=== PATIENT | male | born 1940 | race Caucasian/White ===

== ENCOUNTER → 2018-08-23 | Outpatient (CLI) | payer OTHER ==
[~2018-08-23] MED LIST: ADULT LOW DOSE81 MG PO; ALLOPURINOL 30300 M1 PO; ALTACE 1.25 M1.25 M1 PO; ALTACE5 MG PO; ASPIRIN325 PO; COLACE100 MG PO; FISH OIL 1,0001 EAC5 PO; LIPITOR 20 MG T20 M1 PO; LIPITOR40 MG PO; MINOCYCLINE HC100 M2 PO; MOBIC15 MG PO; NORCO 5-325 TA1 EACH PO; NORVASC 5 MG TAB5 MG PO; NORVASC5 MG PO; PLAVIX 75 MG TA75 M1 PO; PLAVIX 75 MG TA75 MG PO; RAMIPRIL PO; ROBAXIN 750 MG750 M1 PO; TUMS PO; TYLENOL325 MG PO; WELCHOL 625 MG625 MG PO
== END ==
LOC: M.MRI 08:06
DX: M51.37 Other intervertebral disc degeneration, lumbosacral region (principal); M51.27 Other intervertebral disc displacement, lumbosacral region; M48.062 Spinal stenosis, lumbar region with neurogenic claudication; M51.35 Other intervertebral disc degeneration, thoracolumbar region; M41.86 Other forms of scoliosis, lumbar region

== ENCOUNTER → 2018-09-10 | Outpatient (CLI) | payer OTHER ==
--- NOTE | 2018-09-10 11:07 | 2DMMODE ---
[place] [address] 2 D/M-MODE ECHOCARDIOGRAM Name: ANSHU LIGHTIFFORD SOL Room: [facility]#: [id number] Admission: 09/10/18 Attend Phys: Tye Phan Discharge: Date of : 36 Date of Service: 09/10/18 1107 Report #: [id number] THIS REPORT FOR: //name// APPROVED REPORT Study performed: 09/10/2018 09:13:08 EXAM: Comprehensive 2D, Doppler, and color-flow Echocardiogram Patient Location: Out-Patient BSA: 2.11 HR: 50 bpm BP: 137/78 mmHg Other Information Study Quality: Good Indications Atrial Fibrillation Hypertension/HDD 2D Dimensions IVSd: 13.75 (7-11mm) LVOT Diam: 20.03 (18-24mm) LVDd: 52.36 mm PWd: 11.20 (7-11mm) Ascending Ao: 34.00 (22-36mm) LVDs: 33.37 (25-40mm) Aortic Root: 27.35 mm Volumes Left Atrial Volume (Systole) LA ESV Index: 26.40 mL/m2 Aortic Valve AoV Peak Joshua.: 1.62 m/s AO Peak Gr.: 10.49 mmHg LVOT Max P.85 mmHg AO Mean Gr.: 6.13 mmHg LVOT Mean P.82 mmHg LVOT Max V: 0.68 m/s AO V2 VTI: 40.07 cm LVOT Mean V: 0.41 m/s SANDRA (VTI): 1.39 cm2 LVOT V1 VTI: 17.73 cm Mitral Valve E/A Ratio: 0.63 MV Decel. Time: 294.22 ms MV E Max Joshua.: 0.42 m/s MV PHT: 85.32 [place] [address] 2 D/M-MODE ECHOCARDIOGRAM Name: SUHAS LIGHT [id number] Admission: 09/10/18 Attend Phys: Tye Phan Discharge: Date of : 36 Date of Service: 09/10/18 1107 Report #: [id number] MVA (PHT): 2.58 cm2 TDI E/Lateral E': 7.00 E/Medial E': 5.25 Medial E' Joshua.: 0.08 m/s Lateral E' Joshua.: 0.06 m/s Pulmonary Valve PV Peak Joshua.: 0.75 m/s PV Peak Gr.: 2.27 mmHg Tricuspid Valve RAP Estimate: 5.00 mmHg TR Peak Gr.: 17.47 mmHg RVSP: 22.47 mmHg PA Pressure: 22.47 mmHg Left Ventricle The left ventricle is normal size. There is normal LV segmental wall motion. There is normal left ventricular wall thickness. Left ventricular systolic function is normal. The left ventricular ejection fraction is within the normal range. LVEF is 55-60%. Grade I - abnormal relaxation pattern. Right Ventricle The right ventricle is normal size. The right ventricular systolic function is normal. Atria Left atrium is mildly dilated. The right atrium size is normal. Aortic Valve Mild aortic valve sclerosis. No aortic regurgitation is present. There is no aortic valvular stenosis. Mitral Valve The mitral valve is normal in structure. Mild mitral regurgitation. No evidence of mitral valve stenosis. Tricuspid Valve The tricuspid valve is normal in structure. Mild tricuspid regurgitation. Pulmonic Valve The pulmonary valve is normal in structure. Mild [place] [address] 2 D/M-MODE ECHOCARDIOGRAM Name: SUHAS LIGHT Room: [facility]#: [id number] Admission: 09/10/18 Attend Phys: Tye Phan Discharge: Date of : 36 Date of Service: 09/10/18 1107 Report #: [id number] Great Vessels The aortic root is normal in size. IVC is normal in size and collapses >50% with inspiration. Pericardium There is no pericardial effusion. <Conclusion> The left ventricle is normal size. There is normal left ventricular wall thickness. Left ventricular systolic function is normal. The left ventricular ejection fraction is within the normal range. LVEF is 55-60%. Grade I - abnormal relaxation pattern. The right ventricle is normal size. Left atrium is mildly dilated. Mild aortic valve sclerosis. No aortic regurgitation is present. There is no aortic valvular stenosis. The mitral valve is normal in structure. Mild mitral regurgitation. The tricuspid valve is normal in structure. Mild tricuspid regurgitation. IVC is normal in size and collapses >50% with inspiration. There is no pericardial effusion. There is normal LV segmental wall motion. <ELECTRONICALLY SIGNED> By: Osmani Ortiz MD, FACC 09/10/18 1107 1107 1107 Osmani Ortiz MD, FACC /INF
== END ==
LOC: M.CRD 08:32
DX: I08.8 Other rheumatic multiple valve diseases (principal); I48.0 Paroxysmal atrial fibrillation; Z88.8 Allergy status to other drugs, medicaments and biological substances

== ENCOUNTER 2019-12-16 06:50 | Emergency (ER) | payer OTHER ==
[~2019-12-16] VITALS: Ht 177.8 cm; Wt 86.2 kg
[2019-12-16] MEDS ORDERED: ELIQUIS2.5 MG PO (07:06)
[2019-12-16] MEDS ORDERED: NORVASC 2.5 MG2.5 M1 PO (07:07)
[2019-12-16] MEDS ORDERED: FLEXERIL PO (08:35)
[2019-12-16] MEDS ORDERED: NORCO 5-325 TA1 EAC2 PO (08:39)
[2019-12-16 08:46] VITALS: BP 145/63
== END 2019-12-16 08:47 | disposition home or self-care (01) ==
LOC: M.ERS 06:50
DX: S46.811A Strain of other muscles, fascia and tendons at shoulder and upper arm level, right arm, initial encounter (principal); I10 Essential (primary) hypertension; E78.00 Pure hypercholesterolemia, unspecified; K21.9 Gastro-esophageal reflux disease without esophagitis; M10.9 Gout, unspecified; Z85.828 Personal history of other malignant neoplasm of skin; Z88.8 Allergy status to other drugs, medicaments and biological substances; W11.XXXA Fall on and from ladder, initial encounter; Y93.89 Activity, other specified; Y92.89 Other specified places as the place of occurrence of the external cause; Y99.8 Other external cause status